=== PATIENT | female | born 1975 | race Caucasian/White ===

== ENCOUNTER → 2021-06-13 17:49 | Outpatient (ROUT) | payer SELFPAY ==
[2021-06-14 15:39] LABS: Rubella Antibody IgG 29.3 IU/mL (>15)
[2021-06-15 01:05] LABS: Hepatitis B Surf AB Quant >1000.0 mIU/mL (Immunity>9.9)
[2021-06-15 06:18] LABS: Rubeola Measles IgG > 300.0 AU/mL (Immune >16.4)
[2021-06-16 12:16] LABS: Mumps Virus IgG Antibody 92.1 AU/mL (Immune >10.9)
[2021-06-17 19:43] LABS: QuantiFERON Mitogen Value >10.00 IU/mL (.); QuantiFERON Nil Value 0.06 IU/mL (.); QuantiFERON TB Gold Plus Negative (Negative); QuantiFERON TB1 Ag Value 0.05 IU/mL (.); QuantiFERON TB2 Ag Value 0.05 IU/mL (.)
== END ==
DX: Z02.1 Encounter for pre-employment examination (principal)
CPT/HCPCS: 36415; 86480; 86706; 86735; 86762; 86765

== ENCOUNTER → 2021-08-09 15:46 | Outpatient (CLI) | payer OTHER, SELFPAY ==
[2021-08-09] MEDS: COVID-19 VACC, Ad26(JANSSEN)/PF 0.5 ML IM (16:00)
== END ==
PROVIDERS: Visit Provider Internal Medicine
DX: Z23 Encounter for immunization (principal)
CPT/HCPCS: 0031A; 91303